=== PATIENT | male | born 1960 | race African-American/Black ===

== ENCOUNTER 2018-03-09 09:19 | Emergency (ER) | payer SELFPAY ==
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
[2018-03-09] MEDS ORDERED: HYDROmorphone HCL/PF 1 MG/ML DISP.SYRIN IM ONE (09:29)
[2018-03-09] MEDS ORDERED: SILVER SULFADIAZINE 25 GM 1 APPL TUBE TP ONE (10:02)
[2018-03-09 10:26] VITALS: BP 112/74
== END 2018-03-09 10:16 | disposition home or self-care (01) ==
LOC: ED 09:19
DX: T23.102A Burn of first degree of left hand, unspecified site, initial encounter (principal); X10.2XXA Contact with fats and cooking oils, initial encounter; Y92.511 Restaurant or cafe as the place of occurrence of the external cause; Y93.G3 Activity, cooking and baking; Y99.9 Unspecified external cause status
CPT/HCPCS: 96372; 99283; J1170